=== PATIENT | female | born 2000 ===

== ENCOUNTER → 2022-07-30 09:12 | Outpatient (CLI) | payer SELFPAY ==
[2022-07-30 09:38] LABS: Pregnancy Test Urine Negative (Negative)
[2022-07-30 11:16] LABS: Urine N gonorrhoeae NOT DETECTED
[2022-07-30 11:17] LABS: Urine Chlamydia NOT DETECTED
== END ==
PROVIDERS: Visit Provider Nurse Practitioner Family
DX: N89.8 Other specified noninflammatory disorders of vagina (principal); N39.0 Urinary tract infection, site not specified; R30.0 Dysuria; J02.9 Acute pharyngitis, unspecified
CPT/HCPCS: 81025; 87070; 87086; 87210; 87491; 87591